=== PATIENT | female | born 1995 | race Caucasian/White ===

== ENCOUNTER 2021-02-22 04:44 | Inpatient (IN) | payer BC ==
[2021-02-22 06:46] LABS: Appearance,Urine Cloudy (Clear); Bacteria,Urine Rare /hpf; Bilirubin,Urine Negative (Negative); Blood,Urine Negative (Negative); Color,Urine Yellow; Glucose,Urine (UA) Negative (Negative); Hyaline Casts,Urine 1 /lpf (0-2); Ketones,Urine Negative (Negative); Leukocyte Esterase,Urine Negative (Negative); Mucus,Urine Moderate /hpf; Nitrite,Urine Negative (Negative); Protein,Urine Trace (Negative); RBC,Urine 1 /hpf (0-5); Specific Gravity,Urine 1.021 (1.001-1.035); Squamous Epithelial Cell,Urine 3 /hpf (0-4); Urobilinogen,Urine <2.0 mg/dL (<2.0); WBC,Urine 2 /hpf (0-5)
[2021-02-22 06:51] LABS: Creatinine,Urine Random 168.8 mg/dL
[2021-02-22 06:53] LABS: Basophils % (A) 0 %; Eosinophils # (A) 0.2 k/uL (0-0.7); Eosinophils % (A) 2 %; HCT 34.3 % (34.0-46.0); HGB 11.3 gm/dL (11.4-16.0); Lymphocytes # (A) 1.4 k/uL (1.0-4.8); Lymphocytes % (A) 15 %; MCH 26.1 pg (25.0-35.0); Mean Platelet Volume 8.6; Monocytes # (A) 0.5 k/uL (0-1.0); Monocytes % (A) 5 %; Neutrophils # (A) 7.3 k/uL (1.3-7.7); Neutrophils % (A) 77 %; Platelet Count 305 k/uL (150-450); RBC 4.34 m/uL (3.80-5.40); RDW 15.2 % (11.5-15.5); WBC 9.6 k/uL (3.8-10.6)
[2021-02-22 07:05] LABS: ALT 12 U/L (4-34); AST 25 U/L (14-36); African American GFR (CKD) >90 (>60 ml/min/1.73 sqM); Blood Urea Nitrogen 13 mg/dL (7-17); LDH 467 U/L (313-618); Non-African American GFR(CKD) >90 (>60 ml/min/1.73 sqM); Uric Acid 4.8 mg/dL (3.7-7.4)
--- NOTE | 2021-02-22 07:16 | P.MSEPDOC ---
Presenting Problems - Arrival Data Date of Arrival on Unit: 02/22/21 Time of Arrival on Unit: 04:44 Mode of Transport: Ambulatory - Complaint OB-Reason for Admission/Chief Complaint: Possible Onset of Labor Comment: Patient presents to triage with reports of contractions that have increased to every 5 minutes starting at 0300. Medical History - Information : 1 Para: 0 Term: 0 : 0 Abortions: Spontaneous or Elective: 0 Number of Living Children: 0 - Gestational Age Gestational Age by EDIS (wks/days): 39 Weeks and 5 Days Review of Systems - Review of Systems Constitutional: No problems Breast: No problems ENT: No problems Cardiovascular: No problems Respiratory: No problems Gastrointestinal: No problems Genitourinary: No problems Musculoskeletal: No problems Neurological: No problems Skin: No problems Vital Signs - Temperature Temperature: 97.0 F Temperature Source: Temporal Artery Scan - Pulse Right Brachial Pulse Rate: 100 Pulse Assessment Method: Automatic Cuff - Respirations Respiratory Rate: 16 Oxygen Delivery Method: Room Air O2 Sat by Pulse Oximetry: 100 - Blood Pressure Right Arm Blood Pressure: 183/93 Blood Pressure Mean: 123 Blood Pressure Source: Automatic Cuff Medical Screen Scoring - Cervical Exam Dilation (cm): 1 Effacement (%): 50 Station: -2 Membranes: Intact - Assessment - Baby A Baseline FHR: 120 Heart Rate - NICHD Category: Category I (Normal) NST: Reactive Maternal Triage Index - Maternal Triage Index Presenting for scheduled procedure w/no complaint: No - Stat/Priority 1 Stat Priority 1: No - Urgent/Priority 2 Urgent Priority 2: No - Prompt/Priority 3 Prompt Priority 3: No - Non-Urgent/Priority 4 Non-Urgent Priority 4: Yes Criteria Met for Priority 4: Patient presents to triage with reports of contractions that have increased to every 5 minutes starting at 0300. Disposition - Disposition OB Disposition: Admit Discharge Date: 02/22/21 Discharge Time: 07:09 I agree with the RN Medical Screening Exam: Yes Case reviewed; plan agreed upon as documented in EMR&OBIX.: Yes Diagnosis: GESTATIONAL HTN W/O SIGNIFICANT PROTEINURIA, THIRD TRIMESTER (Patient is admitted for induction secondary to gestational hypertension)
[2021-02-22 07:24] LABS: INR 0.8 (<1.2); Partial Thromboplastin Time 22.2 sec (22.0-30.0); Prothrombin Time 9.3 sec (9.0-12.0)
[2021-02-22] MEDS ORDERED: METHYLERGONOVINE 0.2 MG/ML 1 ML AMP IM PRN (07:49)
[2021-02-22] MEDS ORDERED: CARBOPROST TROMETHAMINE 250 MCG/ML 1 ML AMP IM PRN (07:49)
[2021-02-22] MEDS ORDERED: LIDOCAINE 0.5% (PF) 5 MG/ML (50 ML SDV) SQ PRN (07:49)
[2021-02-22] MEDS ORDERED: OXYTOCIN 10 UNIT/ML 1 ML VIAL IM PRN (07:49)
[2021-02-22] MEDS ORDERED: TERBUTALINE 1 MG/ML VIAL SQ PRN (07:49)
[2021-02-22] MEDS: LACTATED RINGERS 1,000 ML IV SCH ×3 (07:58→14:16)
[2021-02-22] MEDS ORDERED: OXYTOCIN 30 UNITS/500 ML NS 30 UNIT in SALINE 1 500ML.BAG IV SCH ×2 (08:00→18:15)
[2021-02-22] MEDS ORDERED: BUTORPHANOL 1 MG/ML 1 ML VIAL IV PRN (08:38)
[2021-02-22] MEDS ORDERED: fentaNYL (PF) 50 MCG/ML 5 ML AMP ONE (12:10)
[2021-02-22] MEDS ORDERED: SODIUM CHLORIDE 0.9% 100 ML BAG ONE (12:10)
[2021-02-22] MEDS ORDERED: ROPIVACAINE 5MG/ML 20ML VIAL ONE (12:10)
[2021-02-22] MEDS ORDERED: Rhogam IMMUNE GLOBULIN 1,500 UNIT/1 ML IM ONE (18:06)
[2021-02-22] MEDS ORDERED: diphenhydrAMINE 50 MG/ML 1 ML VIAL IVP PRN ×2 (18:06)
[2021-02-22] MEDS ORDERED: SIMETHICONE 80 MG CHEWABLE PO PRN (18:06)
[2021-02-22] MEDS ORDERED: ZOLPIDEM 5 MG TAB PO PRN (18:06)
[2021-02-22] MEDS ORDERED: LANOLIN CREAM 5 GM TUBE TOPICAL PRN (18:06)
[2021-02-22] MEDS ORDERED: HYDROCORTISONE 2.5% RECTAL CREAM 30 GM TUBE RECTAL PRN (18:06)
[2021-02-22] MEDS ORDERED: BENZOCAINE/MENTHOL SPRAY 1 GM/SPRAY AEROSOL TOPICAL PRN (18:06)
[2021-02-22] MEDS ORDERED: diphenhydrAMINE 50 MG CAP PO PRN (18:06)
[2021-02-22] MEDS ORDERED: ACETAMINOPHEN TAB 325 MG TAB PO PRN (18:06)
[2021-02-22] MEDS ORDERED: diphenhydrAMINE 25 MG CAP PO PRN (18:06)
[2021-02-22] MEDS ORDERED: IBUPROFEN 600 MG TAB PO PRN (18:06)
--- NOTE | 2021-02-22 18:48 | P.HPOB ---
History of Present Illness H&P Date: 02/22/21 Chief Complaint: Contractions, gestational hypertension 25-year-old presented at 39 weeks and 5 days complaining of contractions. She is tabitha every few minutes but only 1 cm dilated, 80% effaced, and -2 station. heart tones 140 with moderate variability and reactive. Her blood pressures were found to be elevated at 153/94. Pre-eclamptic labs were normal and she was diagnosed with gestational hypertension. According to ACOG guidelines she should be delivered with gestational hypertension after 37 weeks. She was admitted for induction of labor with shared decision-making. Review of Systems All systems: negative Constitutional: Denies chills, Denies fever Eyes: denies blurred vision, denies pain Ears, nose, mouth and throat: Denies headache, Denies sore throat Cardiovascular: Denies chest pain, Denies shortness of breath Respiratory: Denies cough Gastrointestinal: Denies abdominal pain, Denies diarrhea, Denies nausea, Denies vomiting Genitourinary: Denies dysuria, Denies hematuria Musculoskeletal: Denies myalgias Integumentary: Denies pruritus, Denies rash Neurological: Denies numbness, Denies weakness Psychiatric: Denies anxiety, Denies depression Endocrine: Denies fatigue, Denies weight change Past Medical History Past Medical History: No Reported History History of Any Multi-Drug Resistant Organisms: None Reported Past Surgical History: No Surgical Hx Reported Past Anesthesia/Blood Transfusion Reactions: No Reported Reaction Past Psychological History: No Psychological Hx Reported Smoking Status: Never smoker Past Drug Use History: None Reported - Past Family History Mother Family Medical History: No Reported History Medications and Allergies Home Medications Medication Instructions Recorded Confirmed Type Pnv No.95/Ferrous Fum/Folic AC 1 tab PO DAILY MDD 1 02/22/21 02/22/21 History [ Multivitamin Tablet] Allergies Allergy/AdvReac Type Severity Reaction Status Date / Time No Known Allergies Allergy Verified 02/22/21 04:47 Exam Osteopathic Statement: *. No significant issues noted on an osteopathic structural exam other than those noted in the History and Physical/Consult. Vital Signs Temp Pulse Resp BP Pulse Ox 02/22/21 18:27 88 16 142/68 02/22/21 18:12 99 16 138/67 02/22/21 17:57 103 H 16 154/75 02/22/21 17:42 108 H 16 149/70 02/22/21 17:27 98.2 F 115 H 16 142/81 02/22/21 08:05 97.5 F L 69 16 153/94 02/22/21 07:16 97.0 F L 100 16 183/93 100 02/22/21 04:47 97.0 F L 100 16 183/93 100 Intake and Output 02/22/21 02/22/21 02/22/21 06:59 14:59 22:59 Intake Total 1500 Balance 1500 Intake: IV 1500 Other: # Voids 1 Weight 81.647 kg 81.647 kg Heart: Regular rate and rhythm Lungs: Clear to auscultation bilaterally Abdomen: Soft, nontender Extremities: Negative Homans sign Results Result Diagrams: 02/22/21 06:37 02/22/21 06:37 Abnormal Lab Results - Last 24 Hours (Table) 02/22/21 02/22/21 02/22/21 Range/Units 06:02 06:37 06:37 Hgb 11.3 L (11.4-16.0) gm/dL MCV 79.0 L (80.0-100.0) fL Fibrinogen 517 H (200-500) mg/dL Creatinine (0.52-1.04) mg/dL Urine Appearance Cloudy H (Clear) Urine Protein Trace H (Negative) Urine Bacteria Rare H (None) /hpf Urine Mucus Moderate H (None) /hpf 02/22/21 Range/Units 06:37 Hgb (11.4-16.0) gm/dL MCV (80.0-100.0) fL Fibrinogen (200-500) mg/dL Creatinine 0.46 L (0.52-1.04) mg/dL Urine Appearance (Clear) Urine Protein (Negative) Urine Bacteria (None) /hpf Urine Mucus (None) /hpf Assessment and Plan (1) Gestational hypertension Current Visit: Yes Status: Acute Code(s): O13.9 - GESTATIONAL HTN W/O SIGNIFICANT PROTEINURIA, UNSP TRIMESTER SNOMED Code(s): 84537126 Plan: 1. Induction of labor with amniotomy and Pitocin 2. Anticipate normal vaginal delivery
--- NOTE | 2021-02-22 18:49 | P.PROBDLV ---
Vaginal Delivery Note - . Vaginal Delivery Note: 25-year-old presented at 39 weeks and 5 days complaining of contractions. She is tabitha every few minutes but only 1 cm dilated, 80% effaced, and -2 station. heart tones 140 with moderate variability and reactive. Her blood pressures were found to be elevated at 153/94. Pre-eclamptic labs were normal and she was diagnosed with gestational hypertension. According to ACOG guidelines she should be delivered with gestational hypertension after 37 weeks. She was admitted for induction of labor with shared decision-making. Pitocin was started and amniotomy was performed at 7:45 AM clear fluid noted. When she was uncomfortable she did get an epidural. Her cervix was completely dilated at 1707. She pushed, delivered a viable female infant over intact perineum under epidural anesthesia at 1715. Head delivered OA, anterior shoulder delivered gentle downward guidance for by posterior shoulder and rest of body. Nose and mouth bulb suctioned, cord clamped and cut, placed mother's abdomen. Apgars 9, 10, weight 6 lbs. 15 oz. Placenta delivered spontaneously, intact with three-vessel cord soon thereafter. Vagina, cervix, and perineum were inspected. First-degree midline laceration and a left labial laceration were repaired with 3-0 Vicryl. Estimated blood loss 200 mL. Mother and baby in stable condition.
[2021-02-22] MEDS: SENNOSIDES-DOCUSATE SODIUM 1 EACH TAB PO SCH ×2 (19:57→20:47)
[2021-02-23 04:26] LABS: Basophils % (A) 0 %; Eosinophils # (A) 0.1 k/uL (0-0.7); Eosinophils % (A) 0 %; HCT 29.9 % (34.0-46.0); Lymphocytes # (A) 2.2 k/uL (1.0-4.8); Lymphocytes % (A) 16 %; MCH 26.6 pg (25.0-35.0); MCHC 33.4 g/dL (31.0-37.0); MCV 79.6 fL (80.0-100.0); Mean Platelet Volume 8.3; Monocytes # (A) 0.9 k/uL (0-1.0); Monocytes % (A) 6 %; Neutrophils # (A) 10.2 k/uL (1.3-7.7); Neutrophils % (A) 75 %; Platelet Count 266 k/uL (150-450); RBC 3.75 m/uL (3.80-5.40); RDW 15.6 % (11.5-15.5); WBC 13.5 k/uL (3.8-10.6)
--- NOTE | 2021-02-23 07:19 | P.DS ---
Providers Date of admission: 02/22/21 07:12 Expected date of discharge: 02/23/21 Attending physician: Suzanne Velazquez Primary care physician: Stated None - Discharge Diagnosis(es) (1) Gestational hypertension Current Visit: Yes Status: Acute (2) Status post normal vaginal delivery Current Visit: Yes Status: Acute Hospital Course: Patient presented complaining of contractions and was diagnosed with gestational hypertension. She was kept for induction of labor. Her course uncomplicated. She denies nausea, vomiting, chest pain, shortness of breath or calf pain. Her blood pressures are no other elevated. She'll be discharged home day #1 in stable condition to follow-up with me in 6 weeks. Plan - Discharge Summary New Discharge Prescriptions: New Ibuprofen [Motrin] 600 mg PO Q6HR PRN #30 tab PRN Reason: Mild Pain (Scale 1 To 3) No Action Pnv No.95/Ferrous Fum/Folic AC [ Multivitamin Tablet] 1 tab PO DAILY MDD 1 Discharge Medication List Pnv No.95/Ferrous Fum/Folic AC [ Multivitamin Tablet] 1 tab PO DAILY MDD 1 02/22/21 [History] Ibuprofen [Motrin] 600 mg PO Q6HR PRN #30 tab 02/23/21 [Rx] Follow up Appointment(s)/Referral(s): Suzanne Velazquez DO [Doctor of Osteopathic Medicine] - 6 Weeks Discharge Disposition: HOME SELF-CARE
[2021-02-23] MEDS: SENNOSIDES-DOCUSATE SODIUM 1 EACH TAB PO SCH (08:22)
[2021-02-23 09:41] VITALS: RESP 20
[2021-02-23 17:14] VITALS: BP 143/73; PULSE 78; TEMP 97.5
== END 2021-02-23 18:50 | disposition home or self-care (01) | DRG 807 ==
LOC: FBPOP 04:44 → 4FBP 07:12
PROVIDERS: ADMIT Obstetrics & Gynecology; ATTEND Obstetrics & Gynecology
PROC: 10E0XZZ Delivery of Products of Conception, External Approach (ICD-10-PCS; principal; 2021-02-22)
PROC: 0HQ9XZZ Repair Perineum Skin, External Approach (ICD-10-PCS; 2021-02-22)
DX: O13.4 Gestational [pregnancy-induced] hypertension without significant proteinuria, complicating childbirth (principal); Z37.0 Single live birth; O70.0 First degree perineal laceration during delivery; Z3A.39 39 weeks gestation of pregnancy
CPT/HCPCS: 59025; 81001; 82565; 82570; 83615; 84156; 84450; 84460; 84520; 84550; 85025; 85384; 85461; 85610; 85730; 86850; 86900; 86901; 88307; 99213; 99215

== ENCOUNTER → 2022-06-05 | Outpatient (CLI) | payer OTHER ==
[2022-06-05 18:05] LABS: HCT 33.7 % (37.2-46.3); HGB 11.3 g/dL (12.0-15.0); MCH 28.3 pg (27.0-32.0); MCHC 33.5 g/dL (32.0-37.0); MCV 84.3 fL (80.0-97.0); Mean Platelet Volume 9.6 fL (9.5-12.2); NRBC Per 100 WBC 0 /100 WBCS (0.0-0.0); Platelet Count 287 X 10*3/uL (140-440); RDW 13.1 % (11.5-14.5); WBC 6.64 X 10*3/uL (4.50-10.00)
== END | disposition home or self-care (01) ==
LOC: LABWHC1 10:24
PROVIDERS: ATTEND Obstetrics & Gynecology
DX: Z34.82 Encounter for supervision of other normal pregnancy, second trimester (principal); Z3A.00 Weeks of gestation of pregnancy not specified
CPT/HCPCS: 36415; 82950; 85027; 86850

== ENCOUNTER 2022-08-30 05:45 | Inpatient (IN) | payer OTHER ==
[2022-08-30] MEDS ORDERED: CARBOPROST TROMETHAMINE 250 MCG/ML 1 ML AMP IM PRN (06:12)
[2022-08-30] MEDS ORDERED: LIDOCAINE 1% (10MG/ML) FOR IV START INTRADERMA PRN (06:12)
[2022-08-30] MEDS ORDERED: METHYLERGONOVINE 0.2 MG/ML 1 ML AMP IM PRN (06:12)
[2022-08-30] MEDS ORDERED: miSOPROStoL 200 MCG TAB PO PRN (06:12)
[2022-08-30] MEDS ORDERED: OXYTOCIN 10 UNIT/ML 1 ML VIAL IM PRN (06:12)
[2022-08-30] MEDS ORDERED: LIDOCAINE 0.5% (PF) 5 MG/ML (50 ML SDV) SQ PRN (06:12)
[2022-08-30] MEDS ORDERED: TERBUTALINE 1 MG/ML VIAL SQ PRN (06:12)
[2022-08-30] MEDS ORDERED: TRANEXAMIC ACID IN NACL,ISO-OS 1,000 MG in EMPTY BAG 1 BAG IV PRN (06:12)
[2022-08-30] MEDS ORDERED: OXYTOCIN 30 UNITS/500 ML NS 30 UNIT in SALINE 1 500ML.BAG IV SCH (06:15)
[2022-08-30] MEDS: LACTATED RINGERS 1,000 ML IV SCH ×2 (06:22→09:31)
[2022-08-30 06:25] LABS: Basophils % (A) 0 %; Eosinophils # (A) 0.3 k/uL (0-0.7); Eosinophils % (A) 4 %; HCT 32.9 % (34.0-46.0); HGB 10.9 gm/dL (11.4-16.0); Lymphocytes # (A) 1.4 k/uL (1.0-4.8); Lymphocytes % (A) 19 %; MCH 25.8 pg (25.0-35.0); MCHC 33.1 g/dL (31.0-37.0); MCV 77.7 fL (80.0-100.0); Mean Platelet Volume 7.5; Monocytes # (A) 0.5 k/uL (0-1.0); Monocytes % (A) 7 %; Neutrophils # (A) 5.1 k/uL (1.3-7.7); Neutrophils % (A) 68 %; Platelet Count 290 k/uL (150-450); RBC 4.24 m/uL (3.80-5.40); RDW 14.7 % (11.5-15.5); WBC 7.4 k/uL (3.8-10.6)
[2022-08-30] MEDS ORDERED: ROPIVACAINE 5 MG/ML 20 ML AMPULE ONE (09:12)
[2022-08-30] MEDS ORDERED: fentaNYL (PF) 50 MCG/ML 5 ML AMP ONE (09:12)
[2022-08-30] MEDS ORDERED: SODIUM CHLORIDE 0.9% 100 ML BAG ONE (09:12)
--- NOTE | 2022-08-30 12:36 | P.HPOB ---
History of Present Illness H&P Date: 08/30/22 Chief Complaint: Induction of labor 27-year-old presents at 39 weeks and 1 day for induction of labor. Her cervix is 1-2 cm dilated, 70% effaced, and -2 station. She is tabitha every few minutes. heart tones are 140 with moderate variability and reactive. Review of Systems All systems: negative Constitutional: Denies chills, Denies fever Eyes: denies blurred vision, denies pain Ears, nose, mouth and throat: Denies headache, Denies sore throat Cardiovascular: Denies chest pain, Denies shortness of breath Respiratory: Denies cough Gastrointestinal: Denies abdominal pain, Denies diarrhea, Denies nausea, Denies vomiting Genitourinary: Denies dysuria, Denies hematuria Musculoskeletal: Denies myalgias Integumentary: Denies pruritus, Denies rash Neurological: Denies numbness, Denies weakness Psychiatric: Denies anxiety, Denies depression Endocrine: Denies fatigue, Denies weight change Past Medical History Past Medical History: No Reported History Additional Past Medical History / Comment(s): Obstetric history: She has had one previous vaginal delivery. This is her second . She's had care with me since the first trimester. History of Any Multi-Drug Resistant Organisms: None Reported Past Surgical History: No Surgical Hx Reported Past Anesthesia/Blood Transfusion Reactions: No Reported Reaction Past Psychological History: No Psychological Hx Reported Smoking Status: Never smoker Past Drug Use History: None Reported - Past Family History Mother Family Medical History: No Reported History Medications and Allergies Home Medications Medication Instructions Recorded Confirmed Type Pnv No.95/Ferrous Fum/Folic AC 1 tab PO DAILY MDD 1 02/22/21 08/30/22 History [ Multivitamin Tablet] Allergies Allergy/AdvReac Type Severity Reaction Status Date / Time No Known Allergies Allergy Verified 02/22/21 04:47 Exam Osteopathic Statement: *. No significant issues noted on an osteopathic structural exam other than those noted in the History and Physical/Consult. Vital Signs Temp Pulse Resp BP Pulse Ox 08/30/22 06:09 96.9 F L 90 16 136/83 97 Intake and Output 08/29/22 08/30/22 08/30/22 22:59 06:59 14:59 Intake Total 1000 Output Total 500 Balance 500 Intake: IV 1000 Output: Urine 500 Other: # Voids 2 Weight 88.451 kg Heart: Regular rate and rhythm Lungs: Clear to auscultation bilaterally Abdomen: Soft, nontender Extremities: Negative Homans sign Results Result Diagrams: 08/30/22 06:08 Abnormal Lab Results - Last 24 Hours (Table) 08/30/22 Range/Units 06:08 Hgb 10.9 L (11.4-16.0) gm/dL Hct 32.9 L (34.0-46.0) % MCV 77.7 L (80.0-100.0) fL Assessment and Plan (1) Elective induction of labor planned Current Visit: Yes Status: Acute Code(s): [id number] - SNOMED Code(s): 500990416 Plan: 1. Induction of labor with amniotomy and Pitocin 2. Anticipate normal vaginal delivery
[2022-08-30] MEDS ORDERED: LANOLIN CREAM 5 GM TUBE TOPICAL PRN (14:27)
[2022-08-30] MEDS ORDERED: diphenhydrAMINE 50 MG CAP PO PRN (14:27)
[2022-08-30] MEDS ORDERED: SIMETHICONE 80 MG CHEWABLE PO PRN (14:27)
[2022-08-30] MEDS ORDERED: HYDROCORTISONE 2.5% RECTAL CREAM 30 GM TUBE RECTAL PRN (14:27)
[2022-08-30] MEDS ORDERED: diphenhydrAMINE 50 MG/ML 1 ML VIAL IVP PRN ×2 (14:27)
[2022-08-30] MEDS ORDERED: BENZOCAINE/MENTHOL SPRAY 1 GM/SPRAY AEROSOL TOPICAL PRN (14:27)
[2022-08-30] MEDS ORDERED: Rhogam IMMUNE GLOBULIN 1,500 UNIT/1 ML IM ONE (14:27)
[2022-08-30] MEDS ORDERED: IBUPROFEN ORAL SUSP 100 MG/5 ML CUP PO PRN (14:27)
[2022-08-30] MEDS ORDERED: ZOLPIDEM 5 MG TAB PO PRN (14:27)
[2022-08-30] MEDS ORDERED: diphenhydrAMINE 25 MG CAP PO PRN (14:27)
[2022-08-30] MEDS ORDERED: ACETAMINOPHEN ORAL SUSP 160 MG/5 ML CUP PO PRN (14:27)
--- NOTE | 2022-08-30 17:09 | P.PROBDLV ---
Vaginal Delivery Note - . Vaginal Delivery Note: 27-year-old presents at 39 weeks and 1 day for induction of labor. Her cervix is 1-2 cm dilated, 70% effaced, and -2 station. She is tabitha every few minutes. heart tones are 140 with moderate variability and reactive. Pitocin was started. Amniotomy performed at 7:14 AM and clear fluid noted. When she was uncomfortable she did get an epidural. Her cervix was completely dilated at 1356. She pushed, delivered a viable male infant over intact p erineum under epidural anesthesia at 1410. Head delivered OA, nuchal cord 1 easily reduced, anterior shoulder delivered gentle guidance of the posterior shoulder and rest of body. Nose and mouth bulb suctioned, cord clamped and cut, placed on mother's abdomen. Apgars 9, 9, weight 6 pounds 12.8 ounces. Placenta delivered spontaneously, intact with three-vessel cord at 1412. Vagina, cervix, perineum and inspected. First-degree midline laceration and a left labial laceration were repaired with 3-0 Vicryl. Estimated blood loss 50 mL. Mother and baby in stable condition.
[2022-08-30] MEDS: SENNOSIDES-DOCUSATE SODIUM 1 EACH TAB PO SCH (20:23)
[2022-08-30 20:25] VITALS: RESP 16
[2022-08-31 07:22] LABS: Basophils % (A) 0 %; Eosinophils # (A) 0.3 k/uL (0-0.7); Eosinophils % (A) 4 %; HCT 31.3 % (34.0-46.0); HGB 10.2 gm/dL (11.4-16.0); Lymphocytes # (A) 1.2 k/uL (1.0-4.8); Lymphocytes % (A) 12 %; MCH 25.5 pg (25.0-35.0); MCHC 32.7 g/dL (31.0-37.0); MCV 77.8 fL (80.0-100.0); Mean Platelet Volume 7.5; Monocytes # (A) 0.6 k/uL (0-1.0); Monocytes % (A) 6 %; Neutrophils # (A) 7.2 k/uL (1.3-7.7); Neutrophils % (A) 76 %; Platelet Count 228 k/uL (150-450); RBC 4.02 m/uL (3.80-5.40); RDW 14.8 % (11.5-15.5); WBC 9.5 k/uL (3.8-10.6)
--- NOTE | 2022-08-31 08:09 | P.DS ---
Providers Date of admission: 08/30/22 05:45 Expected date of discharge: 08/31/22 Attending physician: Suzanne Velazquez Primary care physician: Stated None - Discharge Diagnosis(es) (1) Elective induction of labor planned Current Visit: Yes Status: Resolved (2) Normal vaginal delivery Current Visit: Yes Status: Acute Hospital Course: Patient presented for induction of labor. She underwent a normal vaginal delivery. course was uncomplicated. She denies nausea, vomiting, ch est pain, shortness of breath or any calf pain. Patient will be discharged home day #1 in stable condition to follow-up with me in 6 weeks. Plan - Discharge Summary New Discharge Prescriptions: New Ibuprofen Oral Susp [Motrin Oral Susp] 600 mg PO Q6HR PRN 10 Days ml PRN Reason: Mild Pain (Scale 1 To 3) No Action Pnv No.95/Ferrous Fum/Folic AC [ Multivitamin Tablet] 1 tab PO DAILY MDD 1 Discharge Medication List Pnv No.95/Ferrous Fum/Folic AC [ Multivitamin Tablet] 1 tab PO DAILY MDD 1 02/22/21 [History] Ibuprofen Oral Susp [Motrin Oral Susp] 600 mg PO Q6HR PRN 10 Days ml 08/31/22 [Rx] Follow up Appointment(s)/Referral(s): Suzanne Velazquez DO [Doctor of Osteopathic Medicine] - 10/12/22 10:45 am Discharge Disposition: HOME SELF-CARE
[2022-08-31 09:03] VITALS: BP 126/86; PULSE 98; TEMP 98
[2022-08-31] MEDS: SENNOSIDES-DOCUSATE SODIUM 1 EACH TAB PO SCH (09:47)
== END 2022-08-31 15:44 | disposition home or self-care (01) | DRG 807 ==
LOC: 4FBP 05:45
PROVIDERS: ADMIT Obstetrics & Gynecology; ATTEND Obstetrics & Gynecology
PROC: 10907ZC Drainage of Amniotic Fluid, Therapeutic from Products of Conception, Via Natural or Artificial Opening (ICD-10-PCS; principal; 2022-08-30)
PROC: 3E033VJ Introduction of Other Hormone into Peripheral Vein, Percutaneous Approach (ICD-10-PCS; principal; 2022-08-30)
PROC: 0HQ9XZZ Repair Perineum Skin, External Approach (ICD-10-PCS; principal; 2022-08-30)
PROC: 3E0234Z Introduction of Serum, Toxoid and Vaccine into Muscle, Percutaneous Approach (ICD-10-PCS; principal; 2022-08-30)
PROC: 10E0XZZ Delivery of Products of Conception, External Approach (ICD-10-PCS; principal; 2022-08-30)
PROC: 0UQMXZZ Repair Vulva, External Approach (ICD-10-PCS; principal; 2022-08-30)
DX: O26.893 Other specified pregnancy related conditions, third trimester (principal); O69.81X0 Labor and delivery complicated by cord around neck, without compression, not applicable or unspecified; O70.0 First degree perineal laceration during delivery; Z67.11 Type A blood, Rh negative; Z28.310 Unvaccinated for COVID-19; Z3A.39 39 weeks gestation of pregnancy; Z37.0 Single live birth
CPT/HCPCS: 85025; 85461; 86850; 86900; 86901